=== PATIENT | male | born 1980 | race African-American/Black ===

== ENCOUNTER 2023-10-03 17:02 | Emergency (ER) | payer OTHER ==
[~2023-10-03] VITALS: Ht 172.7 cm; Wt 86.6 kg
[2023-10-03] MEDS ORDERED: OLANZAPINE 10 MG VIAL IM ONE (18:56)
[2023-10-03] MEDS: OLANZAPINE 10 MG VIAL IM ONE ×2 (19:01→19:18)
[2023-10-03 19:58] LABS: APPEARANCE,URINE CLEAR (CLEAR); BILIRUBIN,URINE NEGATIVE (NEGATIVE); BLOOD, URINE 2+ Ery/uL (NEGATIVE); COLOR,URINE YELLOW (YELLOW); KETONES,URINE 2+ mg/dL (NEGATIVE); LEUKOCYTE ESTERASE ,URINE NEGATIVE (NEGATIVE); NITRITE, URINE NEGATIVE (NEGATIVE); PROTEIN,URINE 2+ mg/dl (NEGATIVE); UGLUCOSE NEGATIVE (NEGATIVE)
[2023-10-03 20:25] LABS: AMPHETAMINE, URINE NEGATIVE (NEGATIVE); BARBITURATE, URINE NEGATIVE (NEGATIVE); CANNABINOID, URINE NEGATIVE (NEGATIVE); COCCAINE, URINE NEGATIVE (NEGATIVE); OPIATE, URINE NEGATIVE (NEGATIVE); PHENCYCLIDINE SCREEN,URINE NEGATIVE (NEGATIVE)
[2023-10-03 20:38] LABS: ADD URINE CULTURE NO; BACTERIA,URINE None seen /HPF (None Seen); MUCUS,URINE Moderate /LPF (None Seen); SQUAMOUS EPITHELIAL CELL,UR None Seen /HPF (None Seen); WBC,URINE NONE SEEN /HPF (0-3)
[2023-10-03] MEDS ORDERED: LORAZEPAM INJ 2 MG/ML VIAL ONE ×2 (20:42→23:20)
[2023-10-03] MEDS ORDERED: LORAZEPAM INJ 2 MG/ML VIAL IM ONE (21:00)
[2023-10-03] MEDS ORDERED: diphenhydrAMINE HCL 50 MG/ML VIAL ONE (21:14)
[2023-10-03] MEDS ORDERED: HALOPERIDOL LACTATE INJ 5 MG/ML VIAL ONE (21:15)
[2023-10-03] MEDS ORDERED: HALOPERIDOL LACTATE INJ 5 MG/ML VIAL IM ONE (21:30)
[2023-10-03] MEDS ORDERED: diphenhydrAMINE HCL 50 MG/ML VIAL IM ONE (21:30)
[2023-10-03 22:41] LABS: BENZODIAZEPINE, URINE NEGATIVE (NEGATIVE)
[2023-10-03 22:58] LABS: BASOPHILS % (AUTO) 0.4 % (0.0-2.0); EOSINOPHILS % (AUTO) 0.3 % (0.0-6.0); HEMATOCRIT 38 % (39-51); HEMOGLOBIN 11.2 g/dL (13.5-17.5); LYMPHOCYTES # (AUTO) 2.2 K/uL (0.8-4.8); LYMPHOCYTES % (AUTO) 22.2 % (20.0-44.0); MEAN CORPUSCULAR HEMOGLOBIN 24 PG (26.0-33.0); MEAN CORPUSCULAR HGB CONC 30 g/dl (31.0-36.0); MEAN CORPUSCULAR VOLUME 82 fL (80-96); MONOCYTES # (AUTO) 1.3 K/uL (0.1-1.30); MONOCYTES % (AUTO) 13.2 % (2.0-12.0); NEUTROPHILS # (AUTO) 6.2 K/uL (1.8-8.9); NEUTROPHILS % (AUTO) 63.9 % (43.0-81.0); PLATELET COUNT (AUTO) 102 K/uL (150-450); RED BLOOD CELL COUNT(AUTO) 4.64 MIL/uL (4.5-6.0); RED CELL DISTRIBUTION WIDTH 19.6 % (11.5-15.0); WHITE BLOOD COUNT (AUTO) 9.7 K/uL (4.3-11.0)
[2023-10-03 23:14] LABS: ALANINE AMINOTRANSFERASE 105 U/L (12-78); ALBUMIN 4.2 g/dL (3.4-5.0); ALCOHOL, BLOOD < 3 mg/dL (0-10); ALKALINE PHOSPHATASE 129 U/L (46-116); ASPARTATE AMINOTRANSFERASE 271 U/L (15-37); BILIRUBIN,DIRECT 0.4 mg/dL (0.0-0.2); BILIRUBIN,TOTAL 1.2 mg/dL (0.2-1.0); CALCIUM, SERUM 9.9 mg/dL (8.5-10.1); CARBON DIOXIDE 21 mmol/L (21-32); CHLORIDE 100 mmol/L (98-107); CREATININE 1.1 mg/dL (0.6-1.3); GLUCOSE 113 mg/dL (74-106); POTASSIUM 3.5 mmol/L (3.5-5.1); SODIUM SERUM 134 mmol/L (136-145); TOTAL PROTEIN, SERUM 8.6 g/dL (6.4-8.2); UREA NITROGEN, BLOOD 14 mg/dL (7-18)
[2023-10-03 23:30] LABS: ACETAMINOPHEN <10 ug/ml (10-30); SALICYLATE < 2.3 mg/dL (2.8-20.0)
[2023-10-03] MEDS ORDERED: IV NS 0.9% 1,000 ML BAG IV ONE ×2 (23:30)
[2023-10-03] MEDS ORDERED: LORAZEPAM INJ 2 MG/ML VIAL IVP ONE (23:30)
[2023-10-04 15:32] VITALS: BP 131/89; TEMP 98.5; O2SAT 100
== END 2023-10-04 15:33 | disposition home or self-care (01) ==
LOC: ER 17:02
DX: R45.850 Homicidal ideations (principal); D64.9 Anemia, unspecified; F29 Unspecified psychosis not due to a substance or known physiological condition; F10.239 Alcohol dependence with withdrawal, unspecified; R74.01 Elevation of levels of liver transaminase levels; E80.6 Other disorders of bilirubin metabolism; Y90.0 Blood alcohol level of less than 20 mg/100 ml; Z20.822 Contact with and (suspected) exposure to COVID-19
CPT/HCPCS: 99285; 96372 ×2; 96374; 96361; 85025; 80048; 80076; 81001; 36415; 87426; 80143; 80320; 80307; J2060 ×2; J1200; J1630; J7030; J3490; G0480